=== PATIENT | female | born 1995 | race Asian ===

== ENCOUNTER → 2016-12-04 | Outpatient (CLI) | payer BC ==
--- NOTE | 2016-12-04 13:30 | MAMMOGRAPHY REPORT ---
ULTRASOUND OF BOTH BREASTS: 12/04/2016 CLINICAL HISTORY: The patient reports that her physician felt bilateral lumps during a routine physi micky exam. She has a history of a mother diagnosed with breast cancer in her 50s. The order states that the left breast lump measures 2 cm and is located in the left lower outer quadrant. The order states that the right breast lump measures 1-2 mm and is located under the nipple. COMPARISON: No prior exams were available for comparison. TECHNIQUE: Real-time targeted ultrasound of both breasts was performed. FINDINGS: Real-time, high resolution targeted ultrasound was performed of the left lower outer quad rant, in the region of one of the palpable lumps felt by the patient's physician. The patient was u nsure where the lump was located. Sonographically normal tissue is seen within the left lower outer quadrant, without evidence of a mass or other suspicious sonographic abnormality. Targeted ultrasound was performed of the right subareolar breast, in the region of the other palpabl e lump felt by the patient's physician. Again, the patient was unsure where exactly the lump was lo cated. In the right medial subareolar breast, there is a superficial oval hypoechoic circumscribed mass with slight posterior acoustic shadowing, which measures 4 x 3 x 4 mm. The mass could represen t a complicated cyst versus a solid mass such as a fibroadenoma. Recommend ultrasound-guided core n eedle biopsy for further evaluation. IMPRESSION: ACR BI-RADS CATEGORY 4A: LOW SUSPICION FOR MALIGNANCY - FOLLOW-UP RECOMMENDED 1. Circumscribed 4 mm hypoechoic mass in the right medial subareolar breast, which likely correspon ds with the palpable lump felt by the patient's physician. The mass is indeterminate and may repres ent a complicated cyst versus a solid mass such as a fibroadenoma or papilloma. Recommend ultrasoun d-guided core needle biopsy for further evaluation. 2. No sonographic abnormality in the left lower outer quadrant, at the site of the other palpable l ump felt by the patient's physician. Recommend clinical follow-up. A phone call was made to the physician's office to confirm faxed results were received. The patient was verbally notified of the results. She tentatively scheduled the biopsy before leaving the depa rtment. Maribel Boyd M.D. /:12/04/2016 10:33:58 Attending Technologist: Cal Andrade RT(R)(M), [facility] Manager Child: Maribel Boyd MD, [facility] letter sent: Abnormal 4/5 BI-RADS Code: ACR BI-RADS Category 4A: Low Suspicion For Malignancy
== END | disposition home or self-care (01) ==
LOC: C.MAMM 09:47
PROVIDERS: ATTEND Internal Medicine
DX: N63 Unspecified lump in breast (principal)

== ENCOUNTER → 2016-12-16 | Outpatient (CLI) | payer BC ==
--- NOTE | 2016-12-16 11:30 | Discharge Instructions ---
Discharge Instructions Procedure Procedure Date: Dec 16, 2016. Reason for visit: Right Mass. Discharge Discharge Date: Dec 16, 2016. Discharge Diagnosis: status post breast biopsy Instructions Activity Recommendations: Additional Limitations (see below) Return to School/Work: no limitations Recommended Home Diet: No Limitations Provider Instructions: ACTIVITY RECOMMENDATIONS: * No lifting, pushing, pulling or exercising the affected side for three days. RETURN TO SCHOOL/WORK: * You may return to work/school after the procedure, but do not perform any strenuous activities for 24 to 48 hours. MEDICATIONS: * Tylenol (two 325 mg) every four to six hours if needed for mild pain (if not allergic to Tylenol). DIET: * Resume previous diet. SPECIAL CARE INSTRUCTIONS: * Keep biopsy site dry for 24 hours. May shower after 24 hours, but do not soak (bathe) incision. * May remove Tegaderm (plastic patch) tomorrow AFTER showering. * Leave the steri-strips on for one week. Allow the steri-strips to fall off by themselves. If not off after one week, you may remove them. You may place a Bandaid crosswise over the strips, if desired. * Apply ice 10 minutes on and 10 minutes off as needed. * Wear a bra at bedtime to sleep more comfortably for 2-3 days. * Your referring physician should have the results after approximately 5 to 7 business days. * Call for unusual bleeding, fever, drainage, etc or if you have any questions call during normal business hours or after hours call Dr Boyd, . FOLLOW UP VISIT: Follow-up with Referring Physician as scheduled. Simón Jainy Recommendations: Call your doctor if: * Temperature above 101 degrees * Pain not relieved by pain medicine ordered * There is increased drainage or redness from any incision * You have any unanswered questions or concerns. Your Doctors Instructions noted above were prepared by provider Maribel Boyd. Patient Signature Section: Patient Instructions Signature Page Linda Castillou Patient (or Guardian) Signature/Date: I have read and understand the instructions given to me by my caregivers. Caregiver/RN/Doctor Signature/Date: The above-named patient and/or guardian has received patient instructions on this date. + Original Patient Signature Page (only) stays with chart. Please make copy for patient.
--- NOTE | 2016-12-16 13:23 | MAMMOGRAPHY REPORT ---
ULTRASOUND GUIDED BIOPSY RIGHT BREAST: 12/16/2016 CLINICAL HISTORY: Right subareolar breast mass. PATIENT CONSENT: The procedure, risks and benefits were discussed with the patient and informed writ ten consent was obtained. A timeout was performed immediately prior to the procedure. PROCEDURE DESCRIPTION: With ultrasound guidance, aseptic technique, and lidocaine as the local anest hetic (1% lidocaine to anesthetize the skin and 1% lidocaine with epinephrine to anesthetize the tracie per tissues), the mass of concern in the right subareolar breast was sampled 3 times with a 14-gauge Achieve biopsy needle. Immediately thereafter, with ultrasound guidance, aseptic technique, and l idocaine as the local anesthetic, a metallic localizer clip was placed at the biopsy site. Direct p ressure was applied to the site immediately post procedure and hemostasis was achieved. The patien t tolerated the procedure without complication. She was given wound care instructions. The specimen s were sent to pathology for analysis. COMPARISON: Comparison is made to exam dated: 12/04/2016 ultrasound - [facility]. IMPRESSION: ULTRASOUND GUIDED BIOPSY Ultrasound-guided core needle biopsy of the right subareolar breast mass, with clip placement. The patient will receive pathology results from her referring provider. Maribel Boyd M.D. ah/:12/16/2016 11:32:20 Attending Technologist: Maribel Boyd MD, [facility] Passenger Booking Clerk: Cal RUSS(R)(M), [facility]
== END | disposition home or self-care (01) ==
LOC: C.MAMM 10:47
PROVIDERS: ATTEND Internal Medicine
DX: N63 Unspecified lump in breast (principal)